=== PATIENT | female | born 1970 | race Caucasian/White ===

== ENCOUNTER 2017-04-03 08:41 | Emergency (ER) | END 2017-04-04 08:45 | disposition home or self-care (01) ==

== ENCOUNTER 2017-04-04 19:14 | Emergency (ER) | END 2017-04-04 22:53 | disposition home or self-care (01) ==

== ENCOUNTER 2017-11-28 10:40 | Emergency (ER) | END 2017-11-28 12:08 | disposition home or self-care (01) ==

== ENCOUNTER 2017-11-30 09:05 | Emergency (ER) | END 2017-11-30 09:53 | disposition home or self-care (01) ==

== ENCOUNTER 2018-10-22 18:34 | Emergency (ER) | payer SELFPAY ==
[~2018-10-22] VITALS: Ht 167.6 cm; Wt 87.0 kg
[~2018-10-22 18:34] MED LIST: CEPH-443 PO; HYDR-3980 PO; HYDR-4011 PO; IBUP800T48 PO; PRED20TA PO; SULF1TAB31 PO; TRAM50TA2 PO
[2018-10-22 18:54] VITALS: Ht 167.6 cm; Wt 87.0 kg
[2018-10-22] MEDS ORDERED: SOD CHLORIDE 0.9% 1,000 ML IV STA (19:34)
[2018-10-22] MEDS ORDERED: DIPHENHYDRAMINE 50 MG INJ IV STA (19:34)
[2018-10-22] MEDS ORDERED: PROCHLORPERAZINE 10 MG INJ IV STA (19:34)
[2018-10-22] MEDS ORDERED: KETOROLAC 30 MG INJ IV STA (19:34)
[2018-10-22] MEDS ORDERED: MECLIZINE 12.5 MG TAB PO ONE (20:00)
[2018-10-22] MEDS ORDERED: MECL-77 PO (20:56)
[2018-10-22] MEDS ORDERED: ASPI1TAB31 PO (20:56)
[2018-10-22] MEDS ORDERED: ONDA4TAB14 PO (20:56)
--- NOTE | 2018-10-22 20:59 | ERD ---
ER Documentation Chief Complaint Chief Complaint R sided EM w/dizziness x 2 days HPI This is a 48-year-old female who presents with 2 days right-sided headache for 2 days. She has some nausea and dizziness but no vomiting. No changes in her vision. No fever. No chest pain palpitations or shortness of breath. Has not taken any medications for her symptoms. ROS All systems reviewed and are negative except as per history of present illness. Medications Home Meds Active Scripts Meclizine Hcl* (Meclizine Hcl*) 25 Mg Tablet, 25 MG PO Q8H PRN for DIZZINESS, #20 TAB Prov:RAMAKRISHNA MERRILL PA-C 10/22/18 Ondansetron (Ondansetron Odt) 4 Mg Tab.rapdis, 4 MG PO Q6H PRN for NAUSEA AND/OR VOMITING, #10 TAB Prov:RAMAKRISHNA MERRILL PA-C 10/22/18 Aspirin/Acetaminophen/Caffeine (Excedrin Migraine Caplet) 1 Each Tablet, 1 EACH PO Q6, #20 TAB Prov:RAMAKRISHNA MERRILL PA-C 10/22/18 Hydrocodone/Acetaminophen ([address] Tablet) 1 Each Tablet, 1 TAB PO Q6H PRN for SEVERE PAIN LEVEL 7-10, #20 TAB Prov:PASMEREDITH ENCISO 11/28/17 Ibuprofen* (Motrin*) 800 Mg Tab, 800 MG PO Q6H PRN for PAIN AND OR ELEVATED TEMP, #30 TAB Prov:MEREDITH DUNN 11/28/17 Cephalexin* (Keflex*) 500 Mg Capsule, 500 MG PO TID for 7 Days, CAP Prov:PASILABANMEREDITH F 11/28/17 Sulfamethoxazole/Trimethoprim* (Bactrim Ds* Tablet) 1 Each Tablet, 1 TAB PO BID, #14 TAB Prov:TOMILAMEREDITH HORTA 11/28/17 Hydrocodone/Acetaminophen ([address] Tablet) 1 Each Tablet, 1 EACH PO TID for SEVERE PAIN LEVEL 7-10, #15 TAB Prov:DAREN LOWE MD 04/04/17 Prednisone* (Prednisone*) 20 Mg Tab, 60 MG PO DAILY for 5 Days, TAB Prov:DAREN LOWE MD 04/04/17 Tramadol HCl (Tramadol HCl) 50 Mg Tablet, 50 MG PO Q6H, #20 TAB Prov:CAITIEYVROSE Lenard LI 04/03/17 Allergies Allergies: Coded Allergies: No Known Allergy (Unverified , 11/30/17) PMhx/Soc History of Surgery: Yes () Hx Neurological Disorder: No Hx Respiratory Disorders: No Hx Cardiac Disorders: No Hx Psychiatric Problems: No Hx Miscellaneous Medical Probl: Yes (chronic back pain) Hx Alcohol Use: No Hx Substance Use: No Hx Tobacco Use: No Smoking Status: Never smoker FmHx Family History: No diabetes Physical Exam Vitals Vital Signs Date Temp Pulse Resp B/P (MAP) Pulse Ox O2 O2 Flow FiO2 Time Delivery Rate 10/22/18 98.7 88 18 101/57 98 18:54 (72) Physical Exam INITIAL VITAL SIGNS: Reviewed by me GENERAL: Awake, alert and oriented x 4, well appearing, nontoxic, speaking in full sentences. No acute distress HEAD: Atraumatic NECK: Supple. No masses. Full range of motion. No meningismus. No midline tenderness. EYES: EOMI. PERRL. RESPIRATORY: Clear to auscultation bilaterally. Symmetric chest wall rise. No wheezing or rales. No accessory muscle use. CV: Regular rate and rhythm. No murmurs, rubs, or gallops. Neuro: M/S: Alert and oriented Face: EOMI, face and pharynx with normal sensation and function Motor: Normal strength throughout Sensation: Normal sensation throughout Speech: Normal Cerebel: Normal coordination Normal gait Normal finger to nose Results 24 hrs Current Medications Medications Dose Sig/Tristen Start Time Status Last (Trade) Ordered Route PRN Stop Time Admin Dose Reason Admin Sodium 1,000 ml @ Q1H STAT 10/22/18 DC 10/22/18 Chloride 1,000 mls/hr IV 19:34 19:50 10/22/18 20:33 10 mg ONCE STAT 10/22/18 DC 10/22/18 Prochlorperaz IV 19:34 20:39 ine 10/22/18 19:35 (Compazine Inj) Ketorolac 30 mg ONCE STAT 10/22/18 DC 10/22/18 Tromethamine IV 19:34 19:53 (Toradol) 10/22/18 19:35 25 mg ONCE STAT 10/22/18 DC 10/22/18 Diphenhydrami IV 19:34 19:50 ne HCl 10/22/18 19:35 (Benadryl) Meclizine 25 mg ONCE ONCE 10/22/18 DC 10/22/18 HCl PO 20:00 19:50 (Antivert) 10/22/18 20:01 Procedures/MDM The differential diagnosis includes but is not limited to subdural hematoma, epidural hematoma, intracerebral hemorrhage, occult trauma, CVA, meningitis, encephalitis, hypertension, tension, migraine, cluster, cervical spine disease, and others. CT is negative. Patient given IV fluids, Compazine, Benadryl, Toradol and meclizine with improvement. Discharged with Excedrin Zofran and meclizine. Patient counseled regarding my diagnostic impression and care plan. Prior to discharge all questions answered. Pt agrees with treatment plan and understands strict return precautions. Pt is instructed to follow up with primary care provider within 24-48 hours. Precautionary instructions provided including instructions to return to the ER if not improving or for any worsening or changing symptoms or concerns. Departure Diagnosis: Primary Impression: Headache Condition: Stable Patient Instructions: Self-Care for Headaches Additional Instructions: Llame al doctor YAJAIRA y suzanna arturo BAM PARA DENTRO DE 1-2 LYNN.Dgale a la secretaria que nosotros le instruimos hacer esta bam.Avise o llame si chatterjee condicin se empeora antes de la bam. Regresa aqui si peor o no mejor. RAMAKRISHNA MERRILL PA-C Oct 22, 2018 20:59
[2018-10-22 21:58] VITALS: BP 141/87; PULSE 90; RESP 16
== END 2018-10-22 21:57 | disposition home or self-care (01) ==
LOC: FTE 18:34
DX: R51 Headache (principal)
CPT/HCPCS: 70450; 96374; 96375; 99285; J0780; J1200; J1885; J7030